=== PATIENT | male | born 1945 | race Caucasian/White ===

== ENCOUNTER 2017-10-27 08:45 | Day surgery (SDC) | payer MEDICARE ==
[2017-10-25 08:36] VITALS: BMI 25.7
[~2017-10-27 08:45] MED LIST: LACTATED RINGERS 1,000 ML IV SCH; LIDOCAINE 1% 20 ML VIAL (10MG/ML) FOR IV START INTRADERMA PRN
[2017-10-27 09:33] VITALS: RESP 16; TEMP 97.2
[2017-10-27 09:37] LABS: Glucose,Whole Blood 127 mg/dL (75-99)
[2017-10-27] MEDS ORDERED: PROPOFOL 10 MG/ML 20 ML VIAL IV ONE (09:46)
--- NOTE | 2017-10-27 10:05 | P.PCN ---
Date of Procedure: 10/27/17 Procedure(s) Performed: BRIEF HISTORY: Patient is a 72-year-old pleasant male, scheduled for an elective colonoscopy as a part of screening for colorectal neoplasia. PROCEDURE PERFORMED: Colonoscopy. PREOPERATIVE DIAGNOSIS: Screening for colon cancer. IV sedation per Anesthesia. PROCEDURE: After informed consent was obtained, the patient, was brought into the endoscopy unit. IV sedation was administered by Anesthesia under continuous monitoring. Digital rectal examination was normal. Initially the Olympus CF- 160 flexible video colonoscope was then inserted in the rectum, gradually advanced into the cecum without any difficulty. Careful examination was performed as the scope was gradually being withdrawn. Ileocecal valve and the appendiceal orifice were visualized and appeared normal. Prep was excellent. Mucosa of the cecum, ascending colon, transverse colon, descending colon, sigmoid colon, and rectum appeared normal. Retroflexion was performed in the rectum and small internal hemorrhoids were seen. The patient tolerated the procedure well. IMPRESSION: Normal-appearing colon from rectum to cecum with no evidence of colorectal neoplasia. Small internal hemorrhoids. RECOMMENDATIONS: Findings of this examination were discussed with the patient as well as his family. He was advised to have a repeat screening colonoscopy in 10 years.
[2017-10-27 10:09] VITALS: PULSE 50
[2017-10-27 10:21] VITALS: BP 139/81
== END 2017-10-27 10:52 | disposition home or self-care (01) ==
LOC: ORWHC2ENDO 08:45
PROVIDERS: ATTEND Internal Medicine Gastroenterology
DX: Z12.11 Encounter for screening for malignant neoplasm of colon (principal); K64.8 Other hemorrhoids; E11.9 Type 2 diabetes mellitus without complications; M19.90 Unspecified osteoarthritis, unspecified site; I10 Essential (primary) hypertension; E78.5 Hyperlipidemia, unspecified; Z79.82 Long term (current) use of aspirin; Z79.899 Other long term (current) drug therapy; Z79.84 Long term (current) use of oral hypoglycemic drugs; Z88.5 Allergy status to narcotic agent; Z87.891 Personal history of nicotine dependence
CPT/HCPCS: J2704; G0121

== ENCOUNTER 2020-09-21 13:35 | Emergency (ER) | payer MEDICARE ==
[2020-09-21 13:39] VITALS: TEMP 97.8
[2020-09-21] MEDS ORDERED: SODIUM CHLORIDE 0.9% 500 ML 500 ML IV STA (14:03)
--- NOTE | 2020-09-21 14:09 | ED ---
Abdominal Pain HPI - General Chief Complaint: Abdominal Pain Stated Complaint: Abd Pain Time Seen by Provider: 09/21/20 13:46 Source: patient, RN notes reviewed Mode of arrival: ambulatory Limitations: no limitations - History of Present Illness Initial Comments: 75-year-old white male, alert and oriented 4, presents to the emergency room after seeing Dr. Dodd his PMD for right lower quadrant abdominal pain that woke him from sleep last night. Patient states had pain 5 days ago which resolved on its own in the same spot. Patient states x-ray at PMDs office was inconclusive and was sent to the ER with a prescription for CT abdomen and pelvis with contrast. Patient states last bowel movement he believes was 2 days ago but normally goes every day. Patient denies smoking or drug abuse however does state drinks 1-2 beers a night every night. Patient states he works out often to maintain physical fitness. Patient also has a history of diabetes, hypertension, high cholesterol. Patient states pain is 4 out of 10 but does not need pain medication at this time. Patient denies any nausea vomiting or fevers. Patient denies any surgical abdominal history. MD Complaint: abdominal pain -: days(s) (5) Location: RUQ, RLQ Radiation: none Severity: moderate Severity scale (1-10): 4 Quality: dull Consistency: intermittent Improves With: nothing Worsens With: other (palpation) Associated Symptoms: denies other symptoms - Related Data Home Medications Medication Instructions Recorded Confirmed metFORMIN HCL 1,000 mg PO BID 02/25/15 09/21/20 Aspirin [Adult Low Dose Aspirin EC] 81 mg PO HS 10/25/17 09/21/20 [place]-3 Fatty Acids/Fish Oil [Fish 1 cap PO BID 10/25/17 09/21/20 Oil 1,000 mg Softgel] Atorvastatin [Lipitor] 80 mg PO HS 09/21/20 09/21/20 Multivitamins, Thera [Multivitamin 1 tab PO Q48H 09/21/20 09/21/20 (formulary)] lisinopriL [Zestril] 10 mg PO DAILY 09/21/20 09/21/20 Previous Rx's Medication Instructions Recorded Ibuprofen [Motrin] 800 mg PO Q6HR #30 tab 09/21/20 Tamsulosin [Flomax] 0.4 mg PO DAILY #7 cap 09/21/20 Allergies Allergy/AdvReac Type Severity Reaction Status Date / Time hydrocodone bitartrate Allergy Anaphylaxis Verified 09/21/20 16:27 [From [place]] Review of Systems ROS Statement: Those systems with pertinent positive or pertinent negative responses have been documented in the HPI. ROS Other: All systems not noted in ROS Statement are negative. Past Medical History Past Medical History: Diabetes Mellitus, Hyperlipidemia, Hypertension Additional Past Medical History / Comment(s): arthritis, History of Any Multi-Drug Resistant Organisms: None Reported Past Surgical History: Orthopedic Surgery Additional Past Surgical History / Comment(s): LEFT ACHILLES TENDON REPAIR 02/26/15 Past Anesthesia/Blood Transfusion Reactions: No Reported Reaction Past Psychological History: No Psychological Hx Reported Smoking Status: Never smoker Past Alcohol Use History: Daily Past Drug Use History: None Reported - Past Family History Mother Family Medical History: No Reported History General Exam Limitations: no limitations General appearance: alert, in no apparent distress Head exam: Present: atraumatic, normocephalic, normal inspection Eye exam: Present: normal appearance, PERRL, EOMI. Absent: scleral icterus, conjunctival injection, periorbital swelling ENT exam: Present: normal exam, normal oropharynx, mucous membranes moist Neck exam: Present: normal inspection, full ROM. Absent: tenderness, meningismus, lymphadenopathy Respiratory exam: Present: normal lung sounds bilaterally. Absent: respiratory distress, wheezes, rales, rhonchi, stridor Cardiovascular Exam: Present: regular rate, normal rhythm, normal heart sounds. Absent: systolic murmur, diastolic murmur, rubs, gallop, clicks GI/Abdominal exam: Present: soft, normal bowel sounds. Absent: distended, tenderness, guarding, rebound, rigid, mass, pulsatile mass Extremities exam: Present: normal inspection, full ROM, normal capillary refill. Absent: tenderness, pedal edema, joint swelling, calf tenderness Back exam: Present: normal inspection Neurological exam: Present: alert, oriented X3, CN II-XII intact Psychiatric exam: Present: normal affect, normal mood Skin exam: Present: warm, dry, intact, normal color. Absent: rash Course Vital Signs 09/21/20 09/21/20 13:37 15:47 Temperature 97.8 F Pulse Rate 64 80 Respiratory 20 18 Rate Blood Pressure 147/73 151/87 O2 Sat by Pulse 99 98 Oximetry Medical Decision Making - Medical Decision Making WBC count 10.7 bands 8.4, all other labs within normal limits. Patient has been able to urinate while in the emergency room. CT shows right-sided hydronephrosis with a 4 mm obstructive calculus at the right UV junction. There is also a 2 mm calculus in the upper pole of the right kidney. 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 Appendix is normal. Patient states relief with Flomax and Toradol, states comfortable to be discharged home. To be discharged home to follow up with primary care doctor. Dr. Dodd called the results re layed to him. He is agreeable to sending patient home with Flomax and will follow up with him in the office. He was also notified of the aneurysms noted and CT report. Patient will be directed not to take antibiotics that were called into him by Dr. Dodd as he does not have diverticulitis. Case discussed with Dr. Lyons. - Lab Data Result diagrams: 09/21/20 14:09 09/21/20 14:09 Lab Results 09/21/20 09/21/20 09/21/20 Range/Units 14:09 14:09 14:09 WBC 10.7 H (3.8-10.6) k/uL RBC 4.52 (4.30-5.90) m/uL Hgb 14.7 (13.0-17.5) gm/dL Hct 42.5 (39.0-53.0) % MCV 94.1 (80.0-100.0) fL MCH 32.5 (25.0-35.0) pg MCHC 34.6 (31.0-37.0) g/dL RDW 12.2 (11.5-15.5) % Plt Count 181 (150-450) k/uL MPV 7.9 Neutrophils % 78 % Lymphocytes % 11 % Monocytes % 7 % Eosinophils % 2 % Basophils % 1 % Neutrophils # 8.4 H (1.3-7.7) k/uL Lymphocytes # 1.2 (1.0-4.8) k/uL Monocytes # 0.7 (0-1.0) k/uL Eosinophils # 0.3 (0-0.7) k/uL Basophils # 0.1 (0-0.2) k/uL PT 9.8 (9.0-12.0) sec INR 0.9 (<1.2) APTT 22.7 (22.0-30.0) sec Sodium 137 (137-145) mmol/L Potassium 4.7 (3.5-5.1) mmol/L Chloride 104 (98-107) mmol/L Carbon Dioxide 24 (22-30) mmol/L Anion Gap 9 mmol/L BUN 20 (9-20) mg/dL Creatinine 1.08 (0.66-1.25) mg/dL Est GFR (CKD-EPI)AfAm 77 (>60 ml/min/1.73 sqM) Est GFR (CKD-EPI)NonAf 67 (>60 ml/min/1.73 sqM) Glucose 138 H (74-99) mg/dL Plasma Lactic Acid Suraj (0.7-2.0) mmol/L Calcium 10.6 H (8.4-10.2) mg/dL Total Bilirubin 0.6 (0.2-1.3) mg/dL AST 28 (17-59) U/L ALT 26 (4-49) U/L Alkaline Phosphatase 60 (38-126) U/L Total Protein 7.5 (6.3-8.2) g/dL Albumin 4.5 (3.5-5.0) g/dL Amylase 97 (30-110) U/L Lipase 56 (23-300) U/L Urine Color Urine Appearance (Clear) Urine pH (5.0-8.0) Ur Specific [place] (1.001-1.035) Urine Protein (Negative) Urine Glucose (UA) (Negative) Urine Ketones (Negative) Urine Blood (Negative) Urine Nitrite (Negative) Urine Bilirubin (Negative) Urine Urobilinogen (<2.0) mg/dL Ur Leukocyte Esterase (Negative) 09/21/20 09/21/20 Range/Units 14:09 17:58 WBC (3.8-10.6) k/uL RBC (4.30-5.90) m/uL Hgb (13.0-17.5) gm/dL Hct (39.0-53.0) % MCV (80.0-100.0) fL MCH (25.0-35.0) pg MCHC (31.0-37.0) g/dL RDW (11.5-15.5) % Plt Count (150-450) k/uL MPV Neutrophils % % Lymphocytes % % Monocytes % % Eosinophils % % Basophils % % Neutrophils # (1.3-7.7) k/uL Lymphocytes # (1.0-4.8) k/uL Monocytes # (0-1.0) k/uL Eosinophils # (0-0.7) k/uL Basophils # (0-0.2) k/uL PT (9.0-12.0) sec INR (<1.2) APTT (22.0-30.0) sec Sodium (137-145) mmol/L Potassium (3.5-5.1) mmol/L Chloride (98-107) mmol/L Carbon Dioxide (22-30) mmol/L Anion Gap mmol/L BUN (9-20) mg/dL Creatinine (0.66-1.25) mg/dL Est GFR (CKD-EPI)AfAm (>60 ml/min/1.73 sqM) Est GFR (CKD-EPI)NonAf (>60 ml/min/1.73 sqM) Glucose (74-99) mg/dL Plasma Lactic Acid Suraj 1.7 (0.7-2.0) mmol/L Calcium (8.4-10.2) mg/dL Total Bilirubin (0.2-1.3) mg/dL AST (17-59) U/L ALT (4-49) U/L Alkaline Phosphatase (38-126) U/L Total Protein (6.3-8.2) g/dL Albumin (3.5-5.0) g/dL Amylase (30-110) U/L Lipase (23-300) U/L Urine Color Light Yellow Urine Appearance Clear (Clear) Urine pH 6.5 (5.0-8.0) Ur Specific [place] 1.030 (1.001-1.035) Urine Protein Negative (Negative) Urine Glucose (UA) Negative (Negative) Urine Ketones Negative (Negative) Urine Blood Negative (Negative) Urine Nitrite Negative (Negative) Urine Bilirubin Negative (Negative) Urine Urobilinogen <2.0 (<2.0) mg/dL Ur Leukocyte Esterase Negative (Negative) Disposition Clinical Impression: Kidney stone on right side, Calculus of kidney Disposition: HOME SELF-CARE Condition: Fair Instructions (If sedation given, give patient instructions): Kidney Stones (ED) Additional Instructions: Take medication as prescribed, increase your fluids, follow-up with the primary care doctor next week. Prescriptions: Tamsulosin [Flomax] 0.4 mg PO DAILY #7 cap Ibuprofen [Motrin] 800 mg PO Q6HR #30 tab Is patient prescribed a controlled substance at d/c from ED?: No Referrals: Frank Dodd MD [Primary Care Provider] - 1-2 days Time of Disposition: 18:05
[2020-09-21 14:20] LABS: Basophils # (A) 0.1 k/uL (0-0.2); Basophils % (A) 1 %; Eosinophils # (A) 0.3 k/uL (0-0.7); Eosinophils % (A) 2 %; HCT 42.5 % (39.0-53.0); HGB 14.7 gm/dL (13.0-17.5); Lymphocytes # (A) 1.2 k/uL (1.0-4.8); Lymphocytes % (A) 11 %; MCH 32.5 pg (25.0-35.0); MCHC 34.6 g/dL (31.0-37.0); MCV 94.1 fL (80.0-100.0); Mean Platelet Volume 7.9; Monocytes # (A) 0.7 k/uL (0-1.0); Monocytes % (A) 7 %; Neutrophils # (A) 8.4 k/uL (1.3-7.7); Neutrophils % (A) 78 %; Platelet Count 181 k/uL (150-450); RBC 4.52 m/uL (4.30-5.90); RDW 12.2 % (11.5-15.5); WBC 10.7 k/uL (3.8-10.6)
[2020-09-21 14:28] LABS: Albumin 4.5 g/dL (3.5-5.0); Calcium 10.6 mg/dL (8.4-10.2); INR 0.9 (<1.2); Partial Thromboplastin Time 22.7 sec (22.0-30.0); Potassium 4.7 mmol/L (3.5-5.1); Prothrombin Time 9.8 sec (9.0-12.0); Total Bilirubin 0.6 mg/dL (0.2-1.3); Total Protein 7.5 g/dL (6.3-8.2)
[2020-09-21] MEDS ORDERED: fentaNYL (PF) 50 MCG/ML 2 ML AMP IVP STA (15:31)
[2020-09-21 15:49] VITALS: BP 151/87; PULSE 80; RESP 18
--- NOTE | 2020-09-21 16:03 | CT ---
EXAMINATION TYPE: CT abdomen pelvis w con DATE OF EXAM: 09/21/2020 COMPARISON: None HISTORY: Right side abdomen pain CT DLP: 1232.2 mGycm Automated exposure control for dose reduction was used. CONTRAST: Performed with IV Contrast, patient injected with 100 mL of Isovue 300. Images obtained from the diaphragm to the floor the pelvis with IV contrast. FINDINGS: The lung bases are clear. There is no pleural effusion. Heart size is normal. There is no pericardial effusion. Liver spleen stomach pancreas appear normal. Gallbladder is contracted with large calcified gallstone s. The bile ducts are not dilated. There is no adrenal mass. There is right-sided hydronephrosis and perinephric edema. There is right-s ided hydroureter with 4 mm obstructing calculus at the right ureterovesical junction. There is 2 mm c alculus upper pole right kidney. There are bilateral renal cortical cysts that measure up to 2 cm. Th ere is no retroperitoneal adenopathy. Abdominal aorta is atheromatous. There is 3.5 cm fusiform lower abdominal aortic aneurysm. 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 Bladder distends smoothly. There is no inguinal hernia. There is no free fluid in the pelvis. I see no pelvic mass. There is no mesenteric edema. There is no ascites or free air. There is no bowel obstruction. There is short appendix appears normal. Lumbar vertebra have normal alignment. There is no compression fracture. The bony pelvis is intact. IMPRESSION: Obstructing calculus at the right ureterovesical junction with right-sided hydronephrosis and hydrour eter. Cholelithiasis. Small right renal calculus.
[2020-09-21] MEDS ORDERED: KETOROLAC 15 MG/ML 1 ML VIAL IVP STA (16:52)
[2020-09-21] MEDS ORDERED: ONDANSETRON 4 MG/2 ML VIAL IVP STA (17:05)
[2020-09-21] MEDS ORDERED: TAMSULOSIN 0.4 MG CAP.ER.24H PO STA (17:12)
[2020-09-21 18:08] LABS: Appearance,Urine Clear (Clear); Bilirubin,Urine Negative (Negative); Blood,Urine Negative (Negative); Color,Urine Light Yellow; Glucose,Urine (UA) Negative (Negative); Ketones,Urine Negative (Negative); Leukocyte Esterase,Urine Negative (Negative); Nitrite,Urine Negative (Negative); PH, Urine 6.5 (5.0-8.0); Protein,Urine Negative (Negative); Urobilinogen,Urine <2.0 mg/dL (<2.0)
== END 2020-09-21 18:38 | disposition home or self-care (01) ==
LOC: EC 13:35
DX: R10.11 Right upper quadrant pain (principal); N20.0 Calculus of kidney; E11.9 Type 2 diabetes mellitus without complications; E78.5 Hyperlipidemia, unspecified; I10 Essential (primary) hypertension; M19.90 Unspecified osteoarthritis, unspecified site; Z79.82 Long term (current) use of aspirin; Z79.84 Long term (current) use of oral hypoglycemic drugs
CPT/HCPCS: 99284 ×2; 96374 ×2; 96375 ×3; 96361 ×2; 36415; 80053; 82150; 83605; 83690; 85025; 85610; 85730; 81003; 74177; J2405; J3010; J1885; Q9967

== ENCOUNTER → 2021-09-05 | Outpatient (CLI) | payer MEDICARE | END | disposition home or self-care (01) | LOC: LABPAT 16:01 | PROVIDERS: ATTEND Orthopaedic Surgery | DX: Z01.812 Encounter for preprocedural laboratory examination (principal); Z22.322 Carrier or suspected carrier of Methicillin resistant Staphylococcus aureus; M19.012 Primary osteoarthritis, left shoulder | CPT/HCPCS: 87070 ==

== ENCOUNTER 2021-10-07 11:33 | Observation (INO) | payer MEDICARE, OTHER ==
[2021-10-03 10:34] VITALS: BMI 26.6
--- NOTE | 2021-10-06 11:31 | HP ---
HISTORY AND PHYSICAL CHIEF COMPLAINT: Left shoulder pain. HISTORY OF PRESENT ILLNESS: The patient is a 76-year-old retired male who presents with progressive left shoulder pain for the past several years, worsening recently. He is having pain with any overhead use and at night. He notes initially he injured himself barrera in 1968, where he dislocated his shoulder. He has had multiple treatments, including medications and injections, with minimal relief. He notes daily pain that limits him. PAST MEDICAL HISTORY: Significant for arthritis, type 2 diabetes, hypertension. PAST SURGICAL HISTORY: Significant for previous knee surgery. CURRENT MEDICATIONS: Metformin and aspirin. ALLERGIES: HE DENIES DRUG ALLERGIES. FAMILY HISTORY: Significant for cancer. SOCIAL HISTORY: Significant for social alcohol use. REVIEW OF SYSTEMS: Sixteen-point review of systems otherwise reviewed and is noncontributory. PHYSICAL EXAMINATION: On examination, the patient is approximately 6 feet 1 inch, 200 pounds of endomorphic habitus. HEENT exam is nonfocal. Neck is supple. On examination of his left shoulder, he is tender about the anterior subacromial space. He has moderate crepitus. Active range of motion: Forward elevation 110 degrees, external rotation with arm at side minus 10 degrees, internal rotation to the buttock. Motor strength 5/5 for abduction and external rotation. Impingement test and Neer test are positive. His distal neurovascular exam appears intact, left upper extremity. AP, outlet and axillary lateral views of the left shoulder obtained in the office show severe glenohumeral joint space narrowing with significant spurring. The humeral head to acromial distance appears to be maintained. IMPRESSION: 1. Left severe glenohumeral joint osteoarthrosis. 2. History of left shoulder multiple dislocations. RECOMMENDATIONS: I talked to the patient at length regarding his condition along with treatment options. At this point he is quite symptomatic and limited despite previous conservative measures. After thorough discussion, he opts to proceed with surgery. We will plan to proceed with left total shoulder arthroplasty. Risks and benefits were discussed at length in layman's terms. MMODL / IJN: [id number] /
[~2021-10-07 11:33] MED LIST changes: +ACETAMINOPHEN TAB 500 MG TAB PO PRN; +DEXAMETHASONE SOD PHOSPHATE 4 MG/ML 1 ML VIAL IV ONE; -LACTATED RINGERS 1,000 ML IV SCH; +LIDOCAINE 1% (10MG/ML) FOR IV START INTRADERMA PRN; -LIDOCAINE 1% 20 ML VIAL (10MG/ML) FOR IV START INTRADERMA PRN; +MELOXICAM 7.5 MG TAB PO PRN; +ONDANSETRON 4 MG/2 ML VIAL IVP ONE; +ONDANSETRON 4 MG/2 ML VIAL IVP PRN; +TRANEXAMIC ACID IN NACL,ISO-OS 1,000 MG in SALINE 1 100ML.BAG IVPB PRN; +fentaNYL (PF) 50 MCG/ML 2 ML AMP IV PRN
[2021-10-07] MEDS: LACTATED RINGERS 1,000 ML IV SCH ×2 (12:12→22:30)
[2021-10-07 12:15] LABS: Glucose,Whole Blood 134 mg/dL (75-99)
[2021-10-07] MEDS ORDERED: MIDAZOLAM 2 MG/2 ML VIAL IVP ONE (12:40)
[2021-10-07] MEDS ORDERED: fentaNYL (PF) 50 MCG/ML 2 ML AMP IVP ONE (12:42)
[2021-10-07] MEDS ORDERED: ROPIVACAINE 5 MG/ML 30 ML VIAL ONE (13:30)
[2021-10-07] MEDS ORDERED: GLYCOPYRROLATE 0.2 MG/ML 2 ML VIAL ONE ×2 (13:30)
[2021-10-07] MEDS ORDERED: PHENYLEPHRINE-0.9% NACL SYG 1,000 MCG/10 ML SYRINGE ONE (13:30)
[2021-10-07] MEDS ORDERED: PROPOFOL 10 MG/ML 20 ML VIAL IV ONE (13:30)
[2021-10-07] MEDS ORDERED: SUCCINYLCHOLINE CHLORIDE 100 MG/5 ML SYR IV ONE (13:30)
[2021-10-07] MEDS ORDERED: ePHEDrine 50 MG/ML 1 ML VIAL ONE (13:30)
[2021-10-07] MEDS ORDERED: TRANEXAMIC ACID IN NACL,ISO-OS 1,000 MG/100 ML BAG ONE (13:30)
[2021-10-07] MEDS ORDERED: MIDAZOLAM 2 MG/2 ML VIAL ONE (13:30)
[2021-10-07] MEDS ORDERED: NEOSTIGMINE 1 MG/ML 10 ML VIAL ONE (13:30)
[2021-10-07] MEDS ORDERED: ROCURONIUM 10 MG/ML (5 ML VIAL) IV ONE (13:30)
[2021-10-07] MEDS ORDERED: fentaNYL (PF) 50 MCG/ML 2 ML AMP ONE (13:30)
[2021-10-07] MEDS ORDERED: ceFAZolin 1,000 MG in SODIUM CHLORIDE 0.9% 1,000 ML IRRIGATION ONE (14:05)
--- NOTE | 2021-10-07 14:29 | P.ANPRN ---
Procedure Note - Anesthesia - Nerve Block Performed Left Interscalene Time Out Performed: Yes (12:40) Date of Procedure: 10/07/21 Procedure Start Time: 12:40 Procedure Stop Time: 12:48 Location of Patient: PreOp Indication: Acute Post-Operative Pain, Requested by Surgeon (Dr Del Toro) Sedation Type: Sedate with meaningful contact maintained Preparation: Sterile Prep Position: Supine Catheter: None Needle Types: Pajunk Needle Gauge: Other (see comment) (22g) Ultrasound used to visualize needle placement: Yes Ultrasound used to observe medication spread: Yes Injectate: 0.5% Ropivacaine (see comment for volume) (20cc) Blood Aspirated: No Pain Paresthesia on Injection Noted: No Resistance on Injection: Normal Image Stored and Saved: Yes Events: Uneventful and Well Tolerated
[2021-10-07] MEDS ORDERED: LACTATED RINGERS 1,000 ML IV ONE (14:58)
[2021-10-07] MEDS ORDERED: HYDROmorphone 0.5 MG/0.5 ML SYRINGE IVP PRN (15:27)
--- NOTE | 2021-10-07 15:52 | P.OP ---
Date of Procedure: 10/07/21 Preoperative Diagnosis: Left severe glenohumeral joint osteoarthrosis Postoperative Diagnosis: Same Procedure(s) Performed: Left total shoulder arthroplasty Implants: Arthrex Eclipse size 47 trunnion, medium compression screw, 47+2 humeral head, large central peg cemented glenoid component. Anesthesia: [facility] Surgeon: Duc Del Toro Surgical Orderly #1: Chris Fonseca Surgical Orderly #2: Nigel Almazan Estimated Blood Loss (ml): 100 Pathology: other (Humeral head) Condition: stable Disposition: PACU Indications for Procedure: The patient's 76-year-old male who presents with progressive left shoulder pain secondary to osteoarthrosis despite conservative measures. A discussion of the risks and benefits of operative intervention versus continued conservative measures was made with patient. He opted proceed with surgery. Operative risks to include infection, neurovascular injury, fracture, component loosening/failure need for subsequent procedures was discussed. Informed consent was obtained. Operative Findings: As below Description of Procedure: The patient was brought to the operating room, and after induction of general anesthesia was placed in the beachchair position. The bony prominences were appropriately padded. The right upper extremity was prepped and draped in normal fashion. A deltopectoral incision was then made lateral to the coracoid process extending approximately 12 cm. The skin was incised sharply. Subcutaneous tissues were divided bluntly. Electrocautery was used for hemostasis. The deltopectoral interval was identified and the cephalic vein gently retracted laterally with the deltoid. Subdeltoid adhesions were bluntly dissected. A self-retaining retractor was placed. The clavipectoral fascia was opened and the conjoined tendon gently retracted medially. The upper one third of the pectoralis major was released to help facilitate exposure. The biceps was identified and the sheath was opened. The rotator interval was opened. The biceps was tenotomized and allowed to retract distally. The subscapularis was peeled subperiosteally and tagged with #2 Ethibond suture. The underlying capsu le was resected along with the inferior osteophytes at the platinum bone junction. The humeral head was then exposed releasing the capsule off the humeral neck. The shoulder was gently dislocated. The cutting block was pinned in place utilizing resection guide planning on 30 of retroversion resecting at the surgical neck. The humeral head cut was then made. This measured most appropriately at 47 mm. Residual inferior osteophytes were carefully removed flush with the platinum cortical bone. The alignment guide was placed for the compression screw. The guidewire was then inserted and measured medium. A protector plate was placed on the proximal humerus. A posterior glenoid retractor was placed. The glenoid was then exposed releasing the labrum from the 6-12 o'clock position. Residual labral tissue was removed. The glenoid sized most appropriately at a large. A guidewire was then inserted planning on the appropriate version. The glenoid was reamed down to a bleeding bony terrie face. The central peg hole was drilled. The alignment guide was placed in the peripheral peg holes drilled. A rasp was used in the inferior keel.. There was good anterior to posterior and inferior to superior fit. The trial component was removed. Pulsatile lavage was utilized. The bony surface was dried. The cement was then pressurized with cement utilizing a syringe. Excess cement was removed. A central pegged glenoid was then placed and was fully seated. This was gently impacted. This was held in place until the cement had sufficiently hardened. Attention was then paid again towards preparing the proximal humerus. The trunnion was gently impacted taking care to have adequate bony coverage. A medium compression screw was inserted with good purchase. The guide was then used to place 3 medial push lock anchors. A trial reduction was obtained with a 47+2 humeral head. The shoulder was reduced and taken through range of motion. It was felt to be stable. There was good soft tissue tension. The 47+2 humeral head was gently impacted. The shoulder was gently reduced. It was taken through a range of motion. It was felt to be stable in flexion and extension with internal and external rotation. I felt there was adequate yarsani of soft tissue tension. The fiber tape from the push lock anchors were then passed through the subscapularis for repair. These were then crisscrossed and inserted into to lateral swivel lock anchors. Rotator interval was closed with running #2 Ethibond suture. Pulsatile lavage was utilized. She had minimal drainage at this point therefore a deep drain was not placed. The deltopectoral interval was closed with interrupted 2-0 Vicryl sutures. The subcu tissues were reapproximated with interrupted 2-0 Vicryl sutures. The skin was reprepped with 3-0 subcuticular Prolene suture. Steri-Strips were applied. A sterile dressing was applied in addition to a sling. The patient was then awoken from general anesthesia and transferred to recovery room in good condition. Blood loss was estimated at 100 mL. No complications were incurred. Sponge and needle counts were correct at the end the case. Chris MCWILLIAMS, and Jay MCWILLIAMS public services assistant Amrit the major components the case to include positioning, exposure, resection, implantation, and closure.
[2021-10-07 16:02] LABS: Glucose,Whole Blood 179 mg/dL (75-99)
--- NOTE | 2021-10-07 16:08 | XR ---
EXAMINATION TYPE: XR shoulder limited LT DATE OF EXAM: 10/07/2021 CLINICAL HISTORY: Left shoulder surgical arthroplasty. TECHNIQUE: Single frontal view of the left shoulder was obtained immediately postoperatively. COMPARISON: Outside left shoulder x-rays July 30, 2021 FINDINGS: There is interval partial bony resection and placement of metallic superior medial humeral head prosthesis. Position appears satisfactory with adjacent subcutaneous air consistent with recent surgery noted. Osseous structures are demineralized. IMPRESSION: As above.
[2021-10-07] MEDS: traMADol 50 MG TAB PO SCH ×2 (18:11→22:17)
[2021-10-07 20:47] LABS: Glucose,Whole Blood 182 mg/dL (75-99)
[2021-10-07] MEDS ORDERED: CALCIUM CARBONATE 500 MG CHEWABLE PO PRN (22:40)
[2021-10-07] MEDS: KETOROLAC 15 MG/ML 1 ML VIAL IVP SCH (23:54)
[2021-10-08] MEDS: traMADol 50 MG TAB PO SCH ×3 (02:04→13:06)
[2021-10-08] MEDS: KETOROLAC 15 MG/ML 1 ML VIAL IVP SCH ×2 (05:30→13:32)
[2021-10-08 07:01] LABS: Glucose,Whole Blood 156 mg/dL (75-99)
[2021-10-08 09:10] LABS: Basophils # (A) 0.02 X 10*3/uL (0.00-0.10); Basophils % (A) 0.2 %; Eosinophils # (A) 0.01 X 10*3/uL (0.04-0.35); Eosinophils % (A) 0.1 %; HCT 37.7 % (39.6-50.0); HGB 12.6 g/dL (13.0-17.0); Immature Grans, Automated 0.5 %; Lymphocytes # (A) 1.06 X 10*3/uL (0.90-5.00); Lymphocytes % (A) 10.5 %; MCH 31.9 pg (27.0-32.0); MCHC 33.4 g/dL (32.0-37.0); MCV 95.4 fL (80.0-97.0); Monocytes # (A) 0.82 X 10*3/uL (0.20-1.00); Monocytes % (A) 8.2 %; NRBC Per 100 WBC 0 /100 WBCS (0.0-0.0); Neutrophils % (A) 80.5 %; Platelet Count 215 X 10*3/uL (140-440); RBC 3.95 X 10*6/uL (4.40-5.60); RDW 11.9 % (11.5-14.5); WBC 10.06 X 10*3/uL (4.50-10.00)
--- NOTE | 2021-10-08 10:04 | P.PN ---
Subjective Progress Note Date: 10/08/21 Principal diagnosis: Status post left total shoulder arthroplasty Patient evaluated today bedside, he is resting comfortably in his hospital bed. He is utilizing the arm sling at this time. His pain is well-controlled currently. He is only utilize the IV Toradol this time. Denies any headaches, lightheadedness, chest pain or shortness of breath. Objective - Vital Signs Vital signs: Vital Signs Temp 98 F 10/08/21 07:16 Pulse 88 10/08/21 07:16 Resp 20 10/08/21 07:16 BP 129/70 10/08/21 07:16 Pulse Ox 92 L 10/08/21 07:16 FiO2 Intake & Output 10/07/21 10/08/21 10/08/21 18:59 06:59 18:59 Intake Total 1251 Output Total 100 Balance 1151 Weight 88.9 kg Intake: IV 1251 Output: Estimated Blood Loss 100 Other: # Voids 2 - Exam Left upper extremity: Postoperative bandages removed today. Steri-Strips and suture all in good position and condition. Mild soft tissue swelling or ecchymosis present of the anterior shoulder. Range of motion is intact at the elbow, hand and wrist. Sensory exam to light touch is intact throughout the extremity. Radial/ulnar pulses are both 2+. - Labs CBC & Chem 7: 10/08/21 04:20 Labs: Abnormal Lab Results - Last 24 Hours (Table) 10/07/21 10/07/21 10/07/21 Range/Units 12:13 16:01 20:46 WBC (4.50-10.00) X 10*3/uL RBC (4.40-5.60) X 10*6/uL Hgb (13.0-17.0) g/dL Hct (39.6-50.0) % Immature Gran # (0.00-0.04) X 10*3/uL Neutrophils # (1.80-7.70) X 10*3/uL Eosinophils # (0.04-0.35) X 10*3/uL POC Glucose (mg/dL) 134 H 179 H 182 H (75-99) mg/dL 10/08/21 10/08/21 Range/Units 04:20 06:59 WBC 10.06 H (4.50-10.00) X 10*3/uL RBC 3.95 L (4.40-5.60) X 10*6/uL Hgb 12.6 L (13.0-17.0) g/dL Hct 37.7 L (39.6-50.0) % Immature Gran # 0.05 H (0.00-0.04) X 10*3/uL Neutrophils # 8.10 H (1.80-7.70) X 10*3/uL Eosinophils # 0.01 L (0.04-0.35) X 10*3/uL POC Glucose (mg/dL) 156 H (75-99) mg/dL Assessment and Plan Assessment: Postoperative day #1 status post left total shoulder arthroplasty Plan: Pain control, patient does have an allergy to [place]. I will have him take one dose of tramadol 50 mg one is in the hospital to monitor for adverse effects. DVT prophylaxis, aspirin 81 mg twice a day for 2 weeks Wound care, discuss showering instructions and bandage instructions the patient Activity level restrictions, discussed basic range of motion exercises. Patient will utilize a sling. Icing and elevating techniques discussed Encourage incentive spirometer Medical recommendations Discharge planning: Patient will be discharged home likely today Time with Patient: Less than 30
[2021-10-08 11:21] LABS: Glucose,Whole Blood 211 mg/dL (75-99)
--- NOTE | 2021-10-08 15:06 | P.DS ---
Providers Date of admission: 10/08/21 08:14 Expected date of discharge: 10/08/21 Attending physician: Duc Del Toro Consults: 10/07/21 15:29 Consult Physician Routine Consulting Provider: Frank Dodd Reason/Comments: Medical Management Do you want consulting provider notified?: Yes Primary care physician: Frank Dodd Hospital Course: Date of admission: 10/07/2021 Date of discharge: 10/08/2021 Admission diagnosis: Status post left total shoulder arthroplasty Discharge diagnosis: Same Attending physician: Dr. Del Toro Surgical procedures: Left total shoulder arthroplasty Brief history: Patient is a 76-year-old male with a history of progressive primary left shoulder osteoarthritis. At this point patient has failed conservative treatment measures and has opted to proceed with a elective left total shoulder arthroplasty. Hospital course: Details of patient's surgery can be found in operative report. Patient tolerated the procedure well and was subsequently transported to orthopedic floor. Patient's orthopeidc and medical care was provided daily. Patient had daily laboratory tests performed for evaluation of overall blood counts. Patient had daily physical therapy to include strengthening range of motion as well as education with walker ambulation. Patient was treated with aspirin for their postoperative DVT prophylaxis during their inpatient stay. Patient was noted to have a relatively uneventful postoperative course. Patient reported satisfactory pain control with oral pain medications by postoperative day 0. Patient showed satisfactory progress with physical therapy. Patient moved steadily through the program and had no difficulty meeting the goals by postoperative day 1. Given patient's otherwise satisfactory course and having met physical therapy goals, plan is to discharge patient home on postoperative day 1. Discharge condition/disposition: Patient will be discharged home in stable condition. Discharge medications: Instructions are given on resumption of patient's normal daily medications per primary care recommendation, in addition patient will be prescribed tramadol 50 mg, Colace 100 mg. Discharge instructions: 1. Wound care and infection precautions, keep incision dry and covered while showering, no lotions, creams, moisturizers. No soaking, tubs, pools, hottubs. Do not scrub over the incision. 2. Utilize arm sling 3. Ice and elevate when necessary. Do not exceed 20 minutes per hour with ice pack. 4. Utilize compression sleeve until seen at first follow up appointment. 5. Visiting nursing care. 6. Home physical therapy. 7. Pain meds and anticoagulants per prescription. 8. Pain medication has potential to cause constipation. Increase oral fluid and fiber intake. Contact primary care provider if you have not had a bowel movement within 48 hours after discharge 9. No anti-inflammatory medication until discussed at first post operative visit, this including Motrin, Aleve, Mobic, Diclofenac. 10. Follow up in office at 2 weeks postop with Jay Almazan PA-C/Chris Pedro 11. Follow up with your primary care doctor 7-10 days after discharge. 12. Contact [facility] with any questions, . Procedures: Left total shoulder arthroplasty Patient Condition at Discharge: Good Plan - Discharge Summary Discharge Rx Participant: Yes New Discharge Prescriptions: New traMADol HCl [Ultram] 50 mg PO Q6H PRN #28 tab PRN Reason: Pain Aspirin [Adult Low Dose Aspirin EC] 81 mg PO BID #60 tab Docusate [Colace] 100 mg PO DAILY #20 capsule No Action metFORMIN HCL [Glucophage] 1,000 mg PO BID [place]-3 Fatty Acids/Fish Oil [Fish Oil 1,000 mg Softgel] 1 cap PO BID Aspirin [Adult Low Dose Aspirin EC] 81 mg PO HS lisinopriL [Zestril] 10 mg PO HS Atorvastatin [Lipitor] 40 mg PO HS Multivitamins, Thera [Multivitamin (formulary)] 1 tab PO Q48H Discharge Medication List metFORMIN HCL [Glucophage] 1,000 mg PO BID 02/25/15 [History] Aspirin [Adult Low Dose Aspirin EC] 81 mg PO HS 10/25/17 [History] [place]-3 Fatty Acids/Fish Oil [Fish Oil 1,000 mg Softgel] 1 cap PO BID 10/25/17 [History] Multivitamins, Thera [Multivitamin (formulary)] 1 tab PO Q48H 09/21/20 [History] lisinopriL [Zestril] 10 mg PO HS 09/21/20 [History] Atorvastatin [Lipitor] 40 mg PO HS 10/03/21 [History] Aspirin [Adult Low Dose Aspirin EC] 81 mg PO BID #60 tab 10/08/21 [Rx] Docusate [Colace] 100 mg PO DAILY #20 capsule 10/08/21 [Rx] traMADol HCl [Ultram] 50 mg PO Q6H PRN #28 tab 10/08/21 [Rx] Follow up Appointment(s)/Referral(s): Chris Fonseca PAC [PHYSICIAN ORTHOTIST/PROSTHETIST] - 10/24/21 3:30 pm Patient Instructions/Handouts: Shoulder Arthroplasty (DC) Activity/Diet/Wound Care/Special Instructions: Orthopedic discharge instructions: 1. Resume home medications 2. Utilize ice around the shoulder discomfort and swelling 3. Utilize arm sling 4. Follow-up at [facility] in 2 weeks Discharge Disposition: HOME SELF-CARE
[2021-10-08 15:38] VITALS: BP 105/63; PULSE 61; RESP 19; TEMP 98.2
--- NOTE | 2021-10-10 11:21 | CONS ---
CONSULTATION CHIEF COMPLAINT: Pain in the left shoulder. HISTORY OF PRESENT ILLNESS: This gentleman has been having increasing difficulty of the left shoulder over the years, and it has become almost completely useless. Range of motion is extremely poor. He is left-handed. He is coming in for elective left shoulder replacement. REVIEW OF SYSTEMS: He has had no fever, no chills, chest pain, shortness of breath, abdominal pain, nausea, etc. He has had no urinary complaints. He is diabetic, but takes very good care of himself and is under good control. He denies any headaches, chest pain, shortness of breath, abdominal pain, nausea, vomiting, hematemesis, melena, hematochezia, jaundice, hematuria frequency, urgency, nocturia, incontinence, etc. Past medical history, family history personal and social histories reveal that he is ALLERGIC TO VICODIN AND SEAFOOD. MEDICATIONS: He is on Atorvastatin 40 mg once a day, metformin 1 g twice a day, amlodipine 10 mg once a day, lisinopril 10 mg once a day, aspirin 81 mg a day. He does not drink or smoke. PHYSICAL EXAMINATION: Blood pressure 120/74, pulse of 80 and regular, respirations of 17. He is afebrile. In general, he appeared to be well developed, well nourished, no acute distress. Skin color is normal. Skin is warm, dry. Lymph nodes are not enlarged. Head, ears, eyes, nose, mouth and throat are normal. Neck veins are not distended. Thyroid is not enlarged. Chest is clear. Cardiac exam is normal. Abdomen is soft and nontender. Extremities are normal except for the left shoulder and he has inability to extend the right elbow due to an old injury. Pulses good. Neurologically he is intact. IMPRESSION: 1. Degenerative osteoarthritis of the left shoulder. 2. Noninsulin dependent diabetes mellitus. 3. 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 RECOMMENDATIONS: None. He is an excellent candidate for this surgery at this time. MMODL / IJN: [id number] /
--- NOTE | 2021-10-10 19:14 | PN ---
PROGRESS NOTE DATE OF SERVICE: 10/08/2021 CHIEF COMPLAINT: Destructive arthritis of the left shoulder. HISTORY OF PRESENT ILLNESS: This gentleman is doing well. His pain is under fairly good control. He has had no fever, chills, nausea, etc. He thinks he is going home this afternoon. PHYSICAL EXAMINATION: Chest is clear. Cardiac exam is normal. Abdomen is soft, nontender. IMPRESSION: 1. Status post left shoulder replacement. 2. Type 2 [id number] diabetes mellitus. PLAN: Probably home today. MMODL / IJN: [id number] /
== END 2021-10-08 16:07 | disposition home or self-care (01) ==
LOC: OR 11:33 → 4SSUR 15:21 → OR 10-08 07:31 → 4SSUR 10-08 08:14
PROVIDERS: ADMIT Orthopaedic Surgery; ATTEND Orthopaedic Surgery
DX: M19.012 Primary osteoarthritis, left shoulder (principal); M21.221 Flexion deformity, right elbow; E11.9 Type 2 diabetes mellitus without complications; I10 Essential (primary) hypertension; E78.5 Hyperlipidemia, unspecified; Z98.890 Other specified postprocedural states; Z87.891 Personal history of nicotine dependence; Z79.84 Long term (current) use of oral hypoglycemic drugs; Z79.82 Long term (current) use of aspirin; Z80.9 Family history of malignant neoplasm, unspecified; Z79.899 Other long term (current) drug therapy; Z88.5 Allergy status to narcotic agent
CPT/HCPCS: 64415; 76942; 85025; 88300; 73020; 23472; G0378; C1713; C1776; J2250; J1100; J2710; J0690 ×3; J2405; J3010; J2795; J1885 ×2; J2370; J0330; J2704